=== PATIENT | male | born 1960 | race Caucasian/White ===

== ENCOUNTER 2019-04-19 11:14 | Emergency (ER) | payer OTHER ==
[~2019-04-19] VITALS: Ht 188 cm; Wt 95.2 kg
[2019-04-19 11:44] LABS: BASOPHILS ABSOLUTE AUTO 0.08 K/mm3 (0.00-0.23); BASOPHILS PERCENT AUTO 1 % (0-2); EOSINOPHILS ABSOLUTE AUTO 0.29 K/mm3 (0.00-0.68); EOSINOPHILS PERCENT AUTO 4 % (0-6); Hematocrit 42.3 % (37.0-53.0); Hemoglobin 14.1 g/dL (13.5-17.5); IMMATURE GRAN ABSOLUTE AUTO 0.03 K/mm3 (0.00-0.10); IMMATURE GRAN PERCENT AUTO 1 % (0-1); LYMPHOCYTES ABSOLUTE AUTO 1.74 K/mm3 (0.84-5.20); LYMPHOCYTES PERCENT AUTO 26 % (21-46); MONOCYTES ABSOLUTE AUTO 0.65 K/mm3 (0.16-1.47); MONOCYTES PERCENT AUTO 10 % (4-13); Mean Corpuscular HGB Conc 33.3 g/dL (31.5-36.5); Mean Corpuscular Volume 87 fL (80-100); Mean Platelet Volume 10.1 fL (9.1-12.4); NEUTROPHILS ABSOLUTE AUTO 3.81 K/mm3 (1.96-9.15); NEUTROPHILS PERCENT AUTO 58 % (41-73); Platelet Count 245 K/mm3 (150-400); RDW Coefficient Variation 12.9 % (11.7-14.2); RDW Standard Deviation 40.7 fL (35.1-46.3); Red Blood Cell Count 4.86 M/mm3 (4.30-5.90)
[2019-04-19 11:48] LABS: Alanine Aminotransfer (ALT/SGP 29 U/L (12-78); Albumin, Blood 3.4 g/dL (3.4-5.0); Albumin/Globulin Ratio 1.2 (0.8-1.8); Alk Phos 97 U/L (50-136); Anion Gap 7 mmol/L (6-16); Aspartate Aminotrans (AST/SGOT 20 U/L (12-37); Bilirubin, Total 0.3 mg/dL (0.1-1.0); Blood Urea Nitrogen 13 mg/dL (8-24); Bun/Creatinine Ratio 16.2 (12.0-20.0); CO2, Blood 26 mmol/L (21-32); Calcium, Blood 8.2 mg/dL (8.5-10.1); Chloride, Blood 109 mmol/L (98-108); Globulin, Blood 2.9 g/dL (2.2-4.0); Glomerular Filtration Rate >60 (60-); Glucose, Blood 90 mg/dL (70-99); Magnesium, Blood 2.1 mg/dL (1.6-2.4); Potassium, Blood 4.2 mmol/L (3.5-5.5); Sodium, Blood 142 mmol/L (136-145); Total Protein, Blood 6.3 g/dL (6.4-8.2); Troponin I <0.015 ng/mL (0.000-0.040)
[2019-04-19] MEDS ORDERED: DOXE25 PO (11:56)
[2019-04-19] MEDS ORDERED: DIVA500ER PO (11:56)
[2019-04-19] MEDS ORDERED: FLUO10 PO (11:56)
[2019-04-19] MEDS ORDERED: Loratadine10 MG PO (11:57)
[2019-04-19] MEDS ORDERED: Zocor20 MG PO (11:57)
[2019-04-19] MEDS ORDERED: QUETIAPINE FUMA50 MG PO (11:57)
[2019-04-19] MEDS ORDERED: LISI20 PO (11:57)
[2019-04-19] MEDS ORDERED: MELA3 PO (11:57)
[2019-04-19] MEDS ORDERED: PROP60 PO (11:57)
[2019-04-20] MEDS ORDERED: Aspir 8181 MG PO (09:32)
== END 2019-04-19 12:59 | disposition home or self-care (01) ==
LOC: ER 11:14
PROVIDERS: Emergency Medicine
DX: R55 Syncope and collapse (principal); E86.0 Dehydration; R11.0 Nausea; R42 Dizziness and giddiness; I10 Essential (primary) hypertension; F31.9 Bipolar disorder, unspecified; Z79.899 Other long term (current) drug therapy
CPT/HCPCS: 80053; 83735; 84484; 85025; 93005; 93010; 96361; 96374; 99284-25; J2405; J7030

== ENCOUNTER 2019-04-20 09:27 | Observation (INO) | payer OTHER ==
[~2019-04-20] VITALS: Ht 188 cm; Wt 98.6 kg
[~2019-04-20 09:27] MED LIST: DIVA500ER PO; DOXE25 PO; FLUO10 PO; LISI20 PO; Loratadine10 MG PO; MELA3 PO; PROP60 PO; QUETIAPINE FUMA50 MG PO; Zocor20 MG PO
[2019-04-20] MEDS ORDERED: Aspir 8181 MG PO (09:32)
[2019-04-20 10:25] LABS: BASOPHILS ABSOLUTE AUTO 0.09 K/mm3 (0.00-0.23); BASOPHILS PERCENT AUTO 1 % (0-2); EOSINOPHILS ABSOLUTE AUTO 0.29 K/mm3 (0.00-0.68); EOSINOPHILS PERCENT AUTO 4 % (0-6); Hematocrit 41.8 % (37.0-53.0); Hemoglobin 13.9 g/dL (13.5-17.5); IMMATURE GRAN ABSOLUTE AUTO 0.04 K/mm3 (0.00-0.10); IMMATURE GRAN PERCENT AUTO 1 % (0-1); LYMPHOCYTES ABSOLUTE AUTO 1.76 K/mm3 (0.84-5.20); LYMPHOCYTES PERCENT AUTO 26 % (21-46); MONOCYTES PERCENT AUTO 8 % (4-13); Mean Corpuscular HGB 29.7 pg (26.0-34.0); Mean Corpuscular HGB Conc 33.3 g/dL (31.5-36.5); Mean Corpuscular Volume 89 fL (80-100); Mean Platelet Volume 10.5 fL (9.1-12.4); NEUTROPHILS ABSOLUTE AUTO 3.98 K/mm3 (1.96-9.15); NEUTROPHILS PERCENT AUTO 60 % (41-73); Platelet Count 244 K/mm3 (150-400); RDW Coefficient Variation 12.6 % (11.7-14.2); RDW Standard Deviation 41.2 fL (35.1-46.3); Red Blood Cell Count 4.68 M/mm3 (4.30-5.90); White Blood Cell Count 6.66 K/mm3 (4.00-11.30)
[2019-04-20 10:37] LABS: Alanine Aminotransfer (ALT/SGP 23 U/L (12-78); Albumin, Blood 3.2 g/dL (3.4-5.0); Albumin/Globulin Ratio 1.2 (0.8-1.8); Alk Phos 94 U/L (50-136); Anion Gap 4 mmol/L (6-16); Aspartate Aminotrans (AST/SGOT 19 U/L (12-37); Bilirubin, Total 0.4 mg/dL (0.1-1.0); Blood Urea Nitrogen 9 mg/dL (8-24); Bun/Creatinine Ratio 10.5 (12.0-20.0); CO2, Blood 28 mmol/L (21-32); Calcium, Blood 8.2 mg/dL (8.5-10.1); Chloride, Blood 109 mmol/L (98-108); Creatinine, Blood 0.85 mg/dL (0.60-1.20); Globulin, Blood 2.7 g/dL (2.2-4.0); Glomerular Filtration Rate >60 (60-); Glucose, Blood 129 mg/dL (70-99); Potassium, Blood 4.5 mmol/L (3.5-5.5); Sodium, Blood 141 mmol/L (136-145); Total Protein, Blood 5.9 g/dL (6.4-8.2)
--- NOTE | 2019-04-20 14:12 | NUR ---
AWARE PT IN RM 360. OK TO HAVE CARDIAC DIET.
--- NOTE | 2019-04-20 15:53 | NUR ---
IN TO SEE PATIENT. MRI DONE.
--- NOTE | 2019-04-20 17:02 | NUR ---
NOTIFIED [facility] PRESSURE 158/101 AND HAS NOT TAKEN HIS INDERAL THIS A.M. IS ORDERED FOR TOMORROW. OK TO GIVE NOW.
--- NOTE | 2019-04-20 18:12 | NUR ---
ALERT. ORIENTED. E.R ADMIT FOR ATAXIA AND DIZZINESS. TELE D'C PER . HAD MRI. IV PATENT AND INFUSING. KEEPS EYES CLOSED PATIENT STS LIGHT MAKES HIM FEEL DIZZY. USES URINAL BY TURNING ON SIDE. ABLE TO MAKE NEEDS KNOWN. UNLABORED RESPIRATIONS. CALL LIGHT WITHIN REACH. BED IN LOW POSITION. [facility].
--- NOTE | 2019-04-20 18:45 | NUR ---
STS IS TRYING TO OPEN EYES MORE OFTEN. CLOSES EYES WHEN FEELS DIZZY. STS IS FEELING LITTLE BETTER.
--- NOTE | 2019-04-21 05:01 | NUR ---
Rn summary: Patient has rested well tonight. Pt denies any dizziness. He was able to walk to BR with standby assist. Pt VS have been stable. Call light in reach. Uneventful night.
[2019-04-21] MEDS ORDERED: PROC5 PO (11:26)
[2019-04-21] MEDS ORDERED: Transderm-Scop1 EACH TD (11:26)
[2019-04-21] MEDS ORDERED: PRED20 PO (11:27)
--- NOTE | 2019-04-21 12:01 | NUR ---
PT DCD HOME WITH . ALL MEDS AND INSTRUCTIONS REVIEWED WITH PT WHO VERBALIZES AN UNDERSTANDING. ALL QUESTIONS ANSWERED. MEDS FAXED TO [facility] PER PT REQUEST. ALL BELONGINGS SENT WITH PT. IV REMOVED WITH NO ISSUES. PT STABLE UPON DC.
== END 2019-04-21 12:05 | disposition home or self-care (01) ==
LOC: ER 09:27 → MEDS 09:28
PROVIDERS: Emergency Medicine; ADMIT Internal Medicine
DX: H83.03 Labyrinthitis, bilateral (principal); I10 Essential (primary) hypertension; E78.5 Hyperlipidemia, unspecified; F31.9 Bipolar disorder, unspecified; F43.10 Post-traumatic stress disorder, unspecified; Z79.899 Other long term (current) drug therapy; Z79.82 Long term (current) use of aspirin
CPT/HCPCS: 70551; 80053; 82375; 85025; 93005; 93010; 96361; 96372; 96374; 96375; 96376; 99285-25; G0378; J1650; J2930; J3360; J7030